=== PATIENT | female | born 1955 | race Caucasian/White ===

== ENCOUNTER 2020-03-08 13:13 | Outpatient (CLI) | payer OTHER, SELFPAY ==
--- NOTE | 2020-03-08 13:21 | MM_ITS ---
WS: [id number] BILATERAL SCREENING DIGITAL MAMMOGRAM WITH CAD HISTORY: SCREENING COMPARISON: 02/06/2019 and 01/31/2018 Bilateral CC and MLO views submitted. Computer aided detection analyzed. Breast composition: The breasts are heterogeneously dense, which may obscure small masses. No suspici ous masses, microcalcifications or architectural distortion. Dense asymmetric soft tissue in the uppe r outer quadrants of each breast. Benign calcifications. MM/[id number] IMPRESSION: BI-RADS: 2-Benign FOLLOW UP: 1 Year Follow-up
== END 2020-03-08 13:14 | disposition home or self-care (01) ==
LOC: RADSHAW 13:16
PROVIDERS: Visit Provider Nurse Practitioner Family
DX: Z12.31 Encounter for screening mammogram for malignant neoplasm of breast (principal)
CPT/HCPCS: 77067

== ENCOUNTER 2021-05-18 09:47 | Outpatient (CLI) | payer MEDICAID, SELFPAY ==
--- NOTE | 2021-05-18 09:58 | MM_ITS ---
WS: [id number] Exam: [id number] Date/Time of Exam: 05/18/2021 10:05 AM Reason For Exam: SCREENING VIEWS: MLO and CC views both breasts. Comparison made with prior exam of 01/31/2018, 02/06/2019 and 03/08/2020. Findings: There was no sign of mass, architectural distortion or suspicious calcification in either breast. He terogeneously dense MM/[id number] Impression: BI-RADS: 2-Benign FOLLOW-UP: 1 Year Follow-up This mammogram was also analyzed by the Computer Aided Detection System R2 Imag e Curtain Stretcher.
== END 2021-05-18 09:48 | disposition home or self-care (01) ==
PROVIDERS: Visit Provider Nurse Practitioner Family
DX: Z12.31 Encounter for screening mammogram for malignant neoplasm of breast (principal)
CPT/HCPCS: 77067

== ENCOUNTER 2022-06-15 10:33 | Outpatient (CLI) | payer MEDICARE, MEDICAID, SELFPAY ==
--- NOTE | 2022-06-15 10:44 | MM_ITS ---
WS: [id number] BILATERAL SCREENING DIGITAL TOMOSYNTHESIS MAMMOGRAM WITH CAD HISTORY: SCREENING COMPARISON: 05/18/2021, 03/08/2020 Bilateral CC and MLO views with tomosynthesis and synthetic mammography submitted. Computer aided det ection analyzed. Breast composition: There are scattered areas of fibroglandular density. No suspicious masses, microc alcifications or architectural distortion. Benign calcifications in each breast. MM/[id number] IMPRESSION: BI-RADS: 2-Benign FOLLOW UP: 1 Year Follow-up
== END 2022-06-15 10:34 | disposition home or self-care (01) ==
LOC: RAD 10:39
PROVIDERS: Visit Provider Family Medicine
DX: Z12.31 Encounter for screening mammogram for malignant neoplasm of breast (principal)
CPT/HCPCS: 77063; 77067

== ENCOUNTER 2023-04-30 15:17 | Inpatient (IN) | payer MEDICARE, SELFPAY ==
[2023-04-30] VITALS (13 sets, daily range): BP systolic 109–148; BP diastolic 62–78; PULSE 78–99; RESP 14–18; TEMP 36.6–38.6; O2SAT 90–96; BMI 31.8
--- NOTE | 2023-04-30 15:18 | W.ED.ABDPA2 ---
HPI - Abdominal Pain General: Chief Complaint: Abdominal Pain Stated Complaint: dr chandra, right side abd pain Time Seen by Provider: 04/30/23 15:18 History of Present Illness: 68-year-old female presents to the emergency department as requested by her primary care provider from [facility]. Patient states that her medical provider called and spoke with Dr. Fitzgerald the general surgeon to inquire about a ruptured appendicitis. Patient states she was called at home and told to come to the emergency department immediately as her CT scan findings showed a ruptured appendicitis and that she needed to be evaluated by the surgeon for additional evaluation treatment and care. Patient states that she had a high fever of 102.6 ?F and complained of right lower abdominal pain she states her current abdominal pain is a 5 out of 10. She does have associated nausea she is slightly febrile now on arrival at 101.5. She states that her last by mouth intake with any food was at noon yesterday. Associated Symptoms: Reports fever(s) and nausea Review of Systems General: Reports: 10 or more systems reviewed and unremarkable except in HPI and below Const: Reports: fever(s) GI: Reports: abdominal pain and nausea Physical Exam Narrative: EXAM NARRATIVE: Constitutional: the patient appears well nourished and of normal development. Vital signs as documented. No acute distress at present. Alert and oriented-to person, place, time and situation. Head, eyes, ears, nose, mouth, throat: Normocephalic, atraumatic. Pupils-equal, round, reactive to light. No scleral icterus. Normal-appearing external ears. Normal appearing nasal turbinates, no drainage. No obvious oral lesions, posterior oropharynx without erythema or exudates. Neck: Supple, trachea is midline, no lymphadenopathy, no jugular venous distension, thyromegaly, or carotid bruits. Carotid upstrokes are brisk bilaterally. Lungs: clear to auscultation to all lung miranda. Symmetrical rise and fall of chest, no obvious signs of increased work of breathing at present. Cardiac: Regular rate and rhythm, positive S1, S2. No murmurs, rubs or gallops that I can appreciate Abdomen: Soft, moderately tender to the right lower quadrant, normal active bowel sounds to all quadrants. No palpable masses, no organomegaly and abdominal bruits. Extremities: 2+ pulses in the upper extremities that are equal bilaterally, 2+ pulses in the lower extremities that are equal bilaterally. Non-edematous. Moves all extremities well, sensation to all extremities are noted. Skin: Warm, dry, intact. Course Vital Signs: Vital signs: Vital Signs Temperature 101.5 F H 04/30/23 15:22 Pulse Rate 98 04/30/23 15:22 Respiratory Rate 16 04/30/23 15:56 Blood Pressure 140/70 04/30/23 15:56 Pulse Oximetry 95 04/30/23 15:56 Oxygen Delivery Me thod Room Air 04/30/23 15:22 MDM - Abdominal Pain Medical Decision Making Physical exam completed and documented I did review the CT report from the outpatient facility and contact Dr. Fitzgerald the general surgeon. I will obtain a CBC, CMP, procalcitonin and lactic acid and blood cultures. Medical Records I reviewed the patient's medical records. Lab Data I reviewed the patient's lab results. 04/30/23 15:31 04/30/23 15:31 Labs/Radiology: Laboratory Results WBC 19.17 10^3/uL (3.29-11.43) H 04/30/23 15:31 RBC 3.90 10^6/uL (3.85-5.65) 04/30/23 15:31 Hgb 11.10 g/dL (11.27-16.99) L 04/30/23 15:31 Hct 32.7 % (36-47) L 04/30/23 15:31 MCV 83.8 fl (85-98) L 04/30/23 15:31 MCH 28.5 pg (27-33) 04/30/23 15:31 MCHC 33.9 g/dL (30-55) 04/30/23 15:31 RDW 15.0 % (12.1-15.1) 04/30/23 15:31 Plt Count 261 10^3/cmm (157-399) 04/30/23 15:31 MPV 10.6 fL (7.4-10.4) H 04/30/23 15:31 Neut % (Auto) 83.9 % 04/30/23 15:31 Lymph % (Auto) 10.1 % 04/30/23 15:31 [place] % (Auto) 4.1 % 04/30/23 15:31 Eos % (Auto) 0.0 % 04/30/23 15:31 Baso % (Auto) 0.3 % 04/30/23 15:31 Neut # (Auto) 16.09 10^3/uL (1.8-7.7) H 04/30/23 15:31 Lymph # (Auto) 1.9 10^3/uL (0.8-4.8) 04/30/23 15:31 [place] # (Auto) 0.8 10^3/uL (0.2-0.9) 04/30/23 15:31 Eos # (Auto) 0.0 10^3/uL (0.0-0.8) 04/30/23 15:31 Baso # (Auto) 0.1 10^3/uL (0.0-0.1) 04/30/23 15:31 Nucleated RBC % (auto) 0 % 04/30/23 15:31 Nucleated RBCs # 0.0 /100WBC 04/30/23 15:31 PT 14.80 SECONDS (12.1-14.9) 04/30/23 15:31 INR 1.12 (0.8-1.2) 04/30/23 15:31 APTT 31.9 SECONDS (23.9-36.7) 04/30/23 15:31 Sodium 132 mmol/L (136-145) L 04/30/23 15:31 Potassium 3.6 mmol/L (3.5-5.1) 04/30/23 15:31 Chloride 96 mmol/L (98-107) L 04/30/23 15:31 Carbon Dioxide 21 mmol/L (22-29) L 04/30/23 15:31 Anion Gap 18.6 (5-19) 04/30/23 15:31 BUN 11 mg/dL (8-23) 04/30/23 15:31 Creatinine 1.0 mg/dL (0.5-0.9) H 04/30/23 15:31 GFR Calculation 55.5 mL/min (90-130) L 04/30/23 15:31 Glucose 170 mg/dL (65-115) H 04/30/23 15:31 Calculated Osmolality 277 mOsm/kg (285-295) L 04/30/23 15:31 Lactic Acid 1.3 mmol/L (0.5-2.2) 04/30/23 15:31 Calcium 10.3 mg/dL (8.5-10.5) 04/30/23 15:31 Total Bilirubin 0.6 mg/dL (0.15-1.2) 04/30/23 15:31 AST 24 U/L (0-32) 04/30/23 15:31 ALT 26 U/L (0-33) 04/30/23 15:31 Alkaline Phosphatase 57 U/L (35-105) 04/30/23 15:31 Total Protein 7.5 g/dL (6.6-8.7) 04/30/23 15:31 Albumin 4.1 g/dL (3.5-5.2) 04/30/23 15:31 Globulin 3.4 g/dL (1.3-4.6) 04/30/23 15:31 Procalcitonin 2.73 ng/mL (0-0.5) H 04/30/23 15:31 Amorphous Sediment Not Reportable 04/30/23 16:32 All radiology interpretation(s) finalized by discharge Discharge Plan Discharge Patient Disposition: Admitted As Inpatient Clinical Impression: Acute appendicitis with appendiceal abscess Abdominal pain Qualifiers: Abdominal location: right lower quadrant Qualified Code(s): R10.31 - Right lower quadrant pain Condition: Stable Coding Level of Care Code 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
[2023-04-30 15:36] LABS: Basophils # 0.1 10^3/uL (0.0-0.1); Basophils % 0.3 %; Hematocrit 32.7 % (36-47); Lymphocytes # 1.9 10^3/uL (0.8-4.8); Lymphocytes % 10.1 %; Mean Corpuscular HGB Conc 33.9 g/dL (30-55); Mean Corpuscular Hemoglobin 28.5 pg (27-33); Mean Corpuscular Volume 83.8 fl (85-98); Mean Platelet Volume 10.6 fL (7.4-10.4); Monocytes # 0.8 10^3/uL (0.2-0.9); Monocytes % 4.1 %; Neutrophils # 16.09 10^3/uL (1.8-7.7); Neutrophils % 83.9 %; Nucleated Red Blood Cells % 0 %; Platelet Count 261 10^3/cmm (157-399); White Blood Count 19.17 10^3/uL (3.29-11.43)
[2023-04-30 15:50] LABS: INR 1.12 (0.8-1.2)
[2023-04-30 15:51] LABS: Partial Thromboplastin Time 31.9 SECONDS (23.9-36.7)
[2023-04-30 15:56] LABS: Alanine Aminotransferase 26 U/L (0-33); Albumin Level 4.1 g/dL (3.5-5.2); Alkaline Phosphatase 57 U/L (35-105); Anion Gap 18.6 (5-19); Aspartate Amino Transferase 24 U/L (0-32); Blood Urea Nitrogen 11 mg/dL (8-23); Calcium 10.3 mg/dL (8.5-10.5); Carbon Dioxide 21 mmol/L (22-29); Chloride 96 mmol/L (98-107); Globulin 3.4 g/dL (1.3-4.6); Glomerular Filtration Rate 55.5 mL/min (90-130); Glucose 170 mg/dL (65-115); Osmolality Calculated 277 mOsm/kg (285-295); Potassium 3.6 mmol/L (3.5-5.1); Sodium 132 mmol/L (136-145); Total Bilirubin 0.6 mg/dL (0.15-1.2); Total Protein 7.5 g/dL (6.6-8.7)
[2023-04-30 15:57] LABS: Lactic Sepsis W/Reflex 1.3 mmol/L (0.5-2.2)
[2023-04-30 16:03] LABS: Procalcitonin 2.73 ng/mL (0-0.5)
--- NOTE | 2023-04-30 16:04 | PC.PHAR ---
pts daughter verified pts medications-state the pts ozempic is on hold for 2 weeks as of 04/29/23 and metformin is on hold till 05/02/23 due to contrast dye-ext shows kcl 10meq daily filled 12/28/22 90d/s pts family states the pt does not take-states the pt uses lantus 36 units in the am and 30 units at bedtime ext shows last filled 04/13/23 50 units bid-notes are made in the pharmacy comments
[2023-04-30 16:57] LABS: Protein Urine 1+ (Negative); Urine Appearance Clear (CLEAR); Urine Color Yellow (Yellow); pH Urine 7 (5-7)
--- NOTE | 2023-04-30 17:01 | P.HP_ITS ---
Providers/Chief Complaint 2 Chief Complaint: dr chandra, right side abd pain History of Present Illness Marcela Mayes is a 68 year old female who presents to the hospital with 5-day history of abdominal pain. She reports that her pain began periumbilically but is now suprapubic across the right lower quadrant and left lower quadrants of her abdomen. The pain is sharp and constant and radiates to her back. Patient movement makes pain worse. Nothing seems to make the pain better. She denies any nausea or vomiting. Denies any diarrhea, constipation, hematochezia and/or melena. She is never had surgery on her abdomen, reportedly. A CT of the abdomen pelvis done at an outside facility shows acute appendicitis with perforation and contained extraluminal air. Review of Systems 2 General: Reports: 10 or more systems reviewed and unremarkable except in HPI and below Medications/Allergies Home Medications Medication Instructions Recorded Confirmed Last Taken Type amlodipine 10 mg tablet 10 mg PO QAM 04/30/23 04/30/23 Unknown History apple cider vinegar 500 mg tablet 500 mg PO BEDTIME 04/30/23 04/30/23 1 Week Ago History ~04/23/23 STOP TAKING A WEEK ascorbic acid (vitamin C) 500 mg 500 mg PO QAM 04/30/23 04/30/23 Unknown History tablet (Vitamin C) aspirin 325 mg tablet 325 mg PO BEDTIME 04/30/23 04/30/23 Unknown History calcium carbonate 600 mg-vitamin 1 tab PO QAM 04/30/23 04/30/23 Unknown History D3 10 mcg (400 unit) tablet (Calcium 600 + D(3)) carvedilol 6.25 mg tablet 6.25 mg PO BID 04/30/23 04/30/23 Unknown History cetirizine 10 mg tablet (Zyrtec) 10 mg PO DAILY 04/30/23 04/30/23 Unknown History citalopram 20 mg tablet 20 mg PO QAM 04/30/23 04/30/23 Unknown History fenofibrate nanocrystallized 48 mg 96 mg PO BEDTIME 04/30/23 04/30/23 Unknown History tablet ferrous sulfate 325 mg (65 mg 325 mg PO QAM 04/30/23 04/30/23 Unknown History iron) tablet (iron) furosemide 20 mg tablet 20 mg PO QAM 04/30/23 04/30/23 Unknown History glipizide 10 mg tablet 10 mg PO BID 04/30/23 04/30/23 Unknown History hydroxyzine HCl 25 mg tablet 25 mg PO BEDTIME 04/30/23 04/30/23 Unknown History ibuprofen 600 mg tablet 600 mg PO TID PRN Pain 04/30/23 04/30/23 Unknown History insulin glargine 100 unit/mL (3 See Rx Instructions .Route .COMPLEX 04/30/23 04/30/23 Unknown History mL) subcutaneous pen (Lantus Solostar U-100 Insulin) lovastatin 40 mg tablet 40 mg PO BEDTIME 04/30/23 04/30/23 Unknown History meloxicam 7.5 mg tablet 7.5 mg PO QAM 04/30/23 04/30/23 Unknown History metformin 1,000 mg tablet 1,000 mg PO BID 04/30/23 04/30/23 Unknown History semaglutide 1 mg/dose (4 mg/3 mL) 1 mg SUBCUT Q7D 04/30/23 04/30/23 Unknown History subcutaneous pen injector (Ozempic) tizanidine 2 mg tablet 2 mg PO Q6H PRN Muscle Spasm 04/30/23 04/30/23 Unknown History vitamin B complex 1 tab PO QAM 04/30/23 04/30/23 Unknown History Allergies Allergy/AdvReac Type Severity Reaction Status Date / Time clonazepam [From Klonopin] Allergy ALGY-Anaphy Verified 04/30/23 15:21 laxis lisinopril Allergy Unknown Verified 04/30/23 15:55 Vitals/I&O/Wt Last Vital Signs Temp 101.5 F H 04/30/23 15:22 Pulse 98 04/30/23 15:22 Resp 16 04/30/23 15:22 BP 148/76 04/30/23 15:22 Pulse Ox 96 04/30/23 15:22 O2 Del Method Room Air 04/30/23 15:22 Weight last 48 hrs Weight 180 lb Physical Exam 2 Narrative: General : Patient is well developed , no acute distress, oriented x3 Head : Normal cephalic, a-traumatic. Ears : Pinnae and external canal are normal. Hearing is normal. Eyes : PERRLA, Sclera and injection are normal. No conjunctival discharge. Nose : Mucous membranes are without erythema. Throat : buccal mucosa is normal, gums are without significant recession or hypertrophy. Lungs : Equal chest rise bilaterally, no use of accessory muscles, trachea is midline. Cor : Rate and rhythm are normal. Abdomen : Soft, distended, diffusely tender to palpation mostly in the right lower quadrant, positive Rovsing's Extremities : No edema, no cyanosis or clubbing, dorsalis pedis pulses are present bilaterally, non-tender to palpation of calves. Upper extremities are normal bilaterally. Back : non-tender to palpation, no CVA tenderness. Neuro : CN II - XII intact, Upper and lower extremities have equal and full strength Data 04/30/23 15:31 04/30/23 15:31 A&P Assessment and plan (1) Acute perforated appendicitis: Plan Laparoscopic Appendectomy The risks and benefits of the procedure, including but not limited to, bleeding, infection, scar, numbness, pain, damage to surrounding structures, conversion to an open procedure, were explained to the patient. He is understanding of the risks and wishes to proceed. Attestations 2 Medical Necessity Statement*: Required 2-5 nights in the hospital for IV antibiotics and recovery after appendectomy for acute perforated appendicitis Coding Level of Care Code 74848 Diagnoses Acute perforated appendicitis K35.32
[2023-04-30 17:05] LABS: Bilirubin Urine Neg (Negative); Blood Urine 3+ (Negative); Glucose Urine UA Norm (Normal); Ketones Urine 1+ (Negative); Leukocyte Esterase Urine 1+ (Negative); Nitrate Urine Negative (Negative); Urobilinogen Urine Norm (Negative)
--- NOTE | 2023-04-30 17:08 | P.ANESASSM_ITS ---
Pre-Anesthetic Assessment Height/Weight: Height 1.6 m Weight 81.647 kg Temp Pulse Resp BP Pulse Ox O2 Del Method 100.6 F H 98 16 129/66 94 Room Air 04/30/23 17:05 04/30/23 17:05 04/30/23 17:05 04/30/23 17:05 04/30/23 17:05 04/30/23 17:05 Preop Diagnosis: ruptured appendicitis Operation Date: 04/30/23 17:05 Proposed Procedures p Laparoscopic Appendectomy(Not Applicable) - Haris Fitzgerald DO Familial anesthetic complications: none Was Beta Clarence taken within 24 hours: N/A Was Clonidine taken within 24 hours: N/A Social No alcohol and No tobacco Exam alert, oriented x 3, clear to auscultation bilaterally and regular rate & rhythm Airway Submandibular: within normal limits Cervical ROM: within normal limits Mallampati: Class I Dentition: false Pulmonary None reported CV/HEM Hypertension None reported Hepatic None reported GI Gastroesophageal Reflux Disease (OTC) Metabolic Diabetes Mellitus and Hyperlipidemia [facility] None reported Neuropsych Anxiety 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 term memory loss Anesthetic Plan ASA status: 3 Anesthesia: General Risk of > 500 ml blood loss (7ml/kg in children): No Medications/Allergies Home Medications Medication Instructions Recorded Confirmed Last Taken Type amlodipine 10 mg tablet 10 mg PO QAM 04/30/23 04/30/23 Unknown History apple cider vinegar 500 mg tablet 500 mg PO BEDTIME 04/30/23 04/30/23 1 Week Ago History ~04/23/23 STOP TAKING A WEEK ascorbic acid (vitamin C) 500 mg 500 mg PO QAM 04/30/23 04/30/23 Unknown History tablet (Vitamin C) aspirin 325 mg tablet 325 mg PO BEDTIME 04/30/23 04/30/23 Unknown History calcium carbonate 600 mg-vitamin 1 tab PO QAM 04/30/23 04/30/23 Unknown History D3 10 mcg (400 unit) tablet (Calcium 600 + D(3)) carvedilol 6.25 mg tablet 6.25 mg PO BID 04/30/23 04/30/23 Unknown History cetirizine 10 mg tablet (Zyrtec) 10 mg PO DAILY 04/30/23 04/30/23 Unknown History citalopram 20 mg tablet 20 mg PO QAM 04/30/23 04/30/23 Unknown History fenofibrate nanocrystallized 48 mg 96 mg PO BEDTIME 04/30/23 04/30/23 Unknown History tablet ferrous sulfate 325 mg (65 mg 325 mg PO QAM 04/30/23 04/30/23 Unknown History iron) tablet (iron) furosemide 20 mg tablet 20 mg PO QAM 04/30/23 04/30/23 Unknown History glipizide 10 mg tablet 10 mg PO BID 04/30/23 04/30/23 Unknown History hydroxyzine HCl 25 mg tablet 25 mg PO BEDTIME 04/30/23 04/30/23 Unknown History ibuprofen 600 mg tablet 600 mg PO TID PRN Pain 04/30/23 04/30/23 Unknown History insulin glargine 100 unit/mL (3 See Rx Instructions .Route .COMPLEX 04/30/23 04/30/23 Unknown History mL) subcutaneous pen (Lantus Solostar U-100 Insulin) lovastatin 40 mg tablet 40 mg PO BEDTIME 04/30/23 04/30/23 Unknown History meloxicam 7.5 mg tablet 7.5 mg PO QAM 04/30/23 04/30/23 Unknown History metformin 1,000 mg tablet 1,000 mg PO BID 04/30/23 04/30/23 Unknown History semaglutide 1 mg/dose (4 mg/3 mL) 1 mg SUBCUT Q7D 04/30/23 04/30/23 Unknown History subcutaneous pen injector (Ozempic) tizanidine 2 mg tablet 2 mg PO Q6H PRN Muscle Spasm 04/30/23 04/30/23 Unknown History vitamin B complex 1 tab PO QAM 04/30/23 04/30/23 Unknown History Allergies Allergy/AdvReac Type Severity Reaction Status Date / Time clonazepam [From Klonopin] Allergy ALGY-Anaphy Verified 04/30/23 15:21 laxis lisinopril Allergy Unknown Verified 04/30/23 15:55 Data Anesthesia 04/30/23 15:31 04/30/23 15:31 Short CBC 04/30/23 Range/Units 15:31 WBC 19.17 H (3.29-11.43) 10^3/uL Hgb 11.10 L (11.27-16.99) g/dL Hct 32.7 L (36-47) % MCV 83.8 L (85-98) fl Plt Count 261 (157-399) 10^3/cmm Neut % (Auto) 83.9 % Neut # (Auto) 16.09 H (1.8-7.7) 10^3/uL BMP 04/30/23 15:31 Sodium 132 L Potassium 3.6 Chloride 96 L Carbon Dioxide 21 L BUN 11 Creatinine 1.0 H Glucose 170 H Calcium 10.3 Liver Function 04/30/23 Range/Units 15:31 Total Bilirubin 0.6 (0.15-1.2) mg/dL AST 24 (0-32) U/L ALT 26 (0-33) U/L Alkaline Phosphatase 57 (35-105) U/L Albumin 4.1 (3.5-5.2) g/dL Coags 04/30/23 15:31 PT 14.80 INR 1.12 APTT 31.9 Cardiac Studies: 2 No Data to Display
[2023-04-30 17:09] LABS: Add Urine Culture? Yes; Squamous Epithelial Cell Urine 0-4 /hpf (0-5)
[2023-04-30] MEDS: heparin 5,000 unit/mL INJ 1 mL 5000 UNIT SUBCUT (17:10)
[2023-04-30] MEDS: pantoprazole 40 mg SDV IVP (17:13)
[2023-04-30] MEDS: piperacillin-tazobactam 3.375 GM in sodium chloride 0.9% (plus) 50 ML IV (17:26)
--- NOTE | 2023-04-30 17:58 | P.CONIM_ITS ---
Providers/Reason For Consult 2 Consulting Physician/Specialty*: Hospitalist Reason for Consult*: Postoperative management Attending Physician: Haris Fitzgerald DO History of Present Illness History of Present Illness Marcela Mayes is a 68 year old female who waited 5 days with her symptoms of abdominal pain nausea, vomiting,Diaphoresis before coming to the hospital. She was transferred from outside facility for appendicitis with perforation. Hospitalist team has been consulted for postoperative management she does have history of diabetes and hypertension. Lives with her daughter. Review of Systems 2 Const: Denies: fever(s) Eyes: Denies: change in vision ENMT: Denies: throat pain Card: Denies: chest pain Resp: Denies: dyspnea GI: Reports: abdominal pain and nausea : Denies: flank pain Medications/Allergies Home Medications Medication Instructions Recorded Confirmed Last Taken Type amlodipine 10 mg tablet 10 mg PO QAM 04/30/23 04/30/23 Unknown History apple cider vinegar 500 mg tablet 500 mg PO BEDTIME 04/30/23 04/30/23 1 Week Ago History ~04/23/23 STOP TAKING A WEEK ascorbic acid (vitamin C) 500 mg 500 mg PO QAM 04/30/23 04/30/23 Unknown History tablet (Vitamin C) aspirin 325 mg tablet 325 mg PO BEDTIME 04/30/23 04/30/23 Unknown History calcium carbonate 600 mg-vitamin 1 tab PO QAM 04/30/23 04/30/23 Unknown History D3 10 mcg (400 unit) tablet (Calcium 600 + D(3)) carvedilol 6.25 mg tablet 6.25 mg PO BID 04/30/23 04/30/23 Unknown History cetirizine 10 mg tablet (Zyrtec) 10 mg PO DAILY 04/30/23 04/30/23 Unknown History citalopram 20 mg tablet 20 mg PO QAM 04/30/23 04/30/23 Unknown History fenofibrate nanocrystallized 48 mg 96 mg PO BEDTIME 04/30/23 04/30/23 Unknown History tablet ferrous sulfate 325 mg (65 mg 325 mg PO QAM 04/30/23 04/30/23 Unknown History iron) tablet (iron) furosemide 20 mg tablet 20 mg PO QAM 04/30/23 04/30/23 Unknown History glipizide 10 mg tablet 10 mg PO BID 04/30/23 04/30/23 Unknown History hydroxyzine HCl 25 mg tablet 25 mg PO BEDTIME 04/30/23 04/30/23 Unknown History ibuprofen 600 mg tablet 600 mg PO TID PRN Pain 04/30/23 04/30/23 Unknown History insulin glargine 100 unit/mL (3 See Rx Instructions .Route .COMPLEX 04/30/23 04/30/23 Unknown History mL) subcutaneous pen (Lantus Solostar U-100 Insulin) lovastatin 40 mg tablet 40 mg PO BEDTIME 04/30/23 04/30/23 Unknown History meloxicam 7.5 mg tablet 7.5 mg PO QAM 04/30/23 04/30/23 Unknown History metformin 1,000 mg tablet 1,000 mg PO BID 04/30/23 04/30/23 Unknown History semaglutide 1 mg/dose (4 mg/3 mL) 1 mg SUBCUT Q7D 04/30/23 04/30/23 Unknown History subcutaneous pen injector (Ozempic) tizanidine 2 mg tablet 2 mg PO Q6H PRN Muscle Spasm 04/30/23 04/30/23 Unknown History vitamin B complex 1 tab PO QAM 04/30/23 04/30/23 Unknown History Allergies Allergy/AdvReac Type Severity Reaction Status Date / Time clonazepam [From Klonopin] Allergy ALGY-Anaphy Verified 04/30/23 15:21 laxis lisinopril Allergy Unknown Verified 04/30/23 15:55 Current Medications Generic Name Dose Route Start Last Admin Trade Name Freq PRN Reason Stop Dose Admin Heparin Sodium (Porcine) 5,000 unit 04/30/23 17:00 04/30/23 17:10 Heparin 5,000 Unit/Ml Inj 1 Ml SUBCUT 5,000 unit Q12H SONJA Administration Piperacillin Sod/Tazobactam 50 mls @ 100 mls/hr 04/30/23 17:00 04/30/23 17:39 Sod 3.375 gm/ Sodium Chloride IV Infused Q8H SONJA Infusion Protocol Pantoprazole Sodium 40 mg 04/30/23 17:00 04/30/23 17:13 Pantoprazole 40 Mg Sdv IVP 40 mg Q24H SONJA Administration PFSH Acute 2 PFSH: Medical History (Updated 05/01/23 @ 10:11 by Xavier Noyola MD) Hypertension Diabetes Vitals/I&O/Wt Last Vital Signs Temp 100.6 F H 04/30/23 17:05 Pulse 98 04/30/23 17:05 Resp 16 04/30/23 17:05 BP 129/66 04/30/23 17:05 Pulse Ox 94 04/30/23 17:05 O2 Del Method Room Air 04/30/23 17:05 04/30/23 04/30/23 04/30/23 06:59 14:59 22:59 Intake Total 50 / 50 Balance 50 / 50 Weight last 48 hrs Weight 81.647 kg Physical Exam 2 Narrative: Awake and alert Postop currently on room air Pleasant cooperative No severe abdominal pain Nonfocal neuroexam Data 05/01/23 04:20 05/01/23 04:20 A&P Assessment and plan (1) Acute appendicitis with appendiceal abscess: (2) Acute perforated appendicitis: (3) Abdominal pain: Qualifiers: Abdominal location: right lower quadrant Qualified Code(s): R10.31 - Right lower quadrant pain (4) S/P laparoscopic appendectomy: (5) Sepsis: Plan Postoperative management of acute perforated appendicitis Laparoscopic appendectomy Postop day 0 Hospitalist team will manage her hypertension, will follow along General surgery Postoperatively monitor for any signs of A-fib Continue amlodipine, Coreg, for her diabetes we will use insulin sliding scale and use Lantus lower unit, hold metformin Patient lives with her daughter Most likely will stay until this weekend Sepsis criteria met with leukocytosis,, fever, she has received septic bolus Blood cultures requested on admission, lactic acid noted Consult Attestations 2 Medical Necessity Statement: As per general surgery Diagnoses Acute appendicitis with appendiceal abscess K35.33 Acute perforated appendicitis K35.32 Abdominal pain R10.31 Abdominal location: right lower quadrant S/P laparoscopic appendectomy Z90.49 Sepsis A41.9
[2023-04-30] MEDS: lidocaine-epi 2% PF 1:200,000 20 mL SDV 3 ML XX (18:15)
--- NOTE | 2023-04-30 18:45 | PM.OP ---
Operative Report Date of procedure: April 30, 2023 Pre-op diagnosis: Acute perforated appendicitis Post-op diagnosis: Acute perforated appendicitis with feculent peritonitis Procedure done: Laparoscopic appendectomy Implants: 19 Citizen Of [place] Douglas drains x 2 Specimens removed/disposition: Appendix and extraluminal stool Surgeon: Haris Fitzgerald DO Anesthesia: General Estimated blood loss (mL): 5 Complications: None apparent Findings: There was a significant amount of extraluminal stool with perforation at the base of the appendix Brief History: This very pleasant 68-year-old female presented to the hospital with 5-day history of abdominal pain. She had CT evidence of perforated appendicitis. Laparoscopic appendectomy was indicated. The risk and benefits were explained and documented. Procedure: Patient was wheeled into the operative room and placed on the OR table in a supine position. Abdomen was inspected prepped and draped in usual sterile fashion. Time-out was performed and all present were in agreement. A 15 blade scalp was used to make a stab incision in the left upper quadrant and intra-abdominal insufflation was achieved using a Veress needle. After localizing the tissue incisions were made and a 12 millimeter trocar was placed into the umbilicus as well as a 5mm in the right lower quadrant and a 5 mm in the left lower quadrant . The appendix was identified was ruptured at the base with a significant amount of stool surrounding the base of the appendix as well as in the right upper quadrant and pelvis.. I used the Voyant to ligate the mesoappendix at the base. I then used 2 PDS endo-loops to snare the base of the appendix. There was very little tissue to last so due to the location of the perforation. I then used the Voyant to ligate the appendix distally. The appendix was removed from the abdomen using an Endo-Catch bag through the umbilical incision. The abdomen was explored and all large pieces of stool were also placed in the Endo Catch bag. I examined the abdomen and areas of contamination were spot irrigated and suctioned. No further pathology was identified. Hemostasis was noted. 219 Citizen [place] Douglas drains were placed into the abdomen. The midline drain goes off from the inferior right paracolic gutter down into the pelvis. The left lower quadrant drain goes along the right colic gutter wrapping around the cecum and ends over the previous site of perforation. Drains were sewn in place using 2-0 silk. I then closed the umbilical site with a Herson-Sam and 0 Vicryl suture in a figure of 8 fashion. All ports removed. Skin was washed and dried. 3-0 nylon in an interrupted fashion. Sterile bandages were applied.. Patient tolerated the procedure well.
--- NOTE | 2023-04-30 19:14 | PC.PHAR ---
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 = 9.2 mcg/ml t1/2 16 hrs Hrs until 20 mcg/ml 6.7 hrs Hrs until 15 mcg/ml 13.5 hours Hrs until 10 mcg/ml 23.0 hours Dose Tau (Freq) Levels expected Standard 1250 24 Cmax 39.0 Targets 19.50 24.5 Cpeak 37.4 25 to 40 mg/kg hours Cmin 15.4 10 to 20
--- NOTE | 2023-04-30 19:32 | P.PCN_ITS ---
PACU note Narrative: VSS, Good respiratory effort, report to BIG DATA PLATFORM ARCHITECT Exam: awake
--- NOTE | 2023-04-30 19:32 | PM.PACU ---
PACU note Narrative: VSS, Good respiratory effort, report to GIFT SHOP CLERK Exam: awake
--- NOTE | 2023-04-30 19:45 | ANE.PACU2 ---
Inpatient post-anesthesia follow up: Airway intact: Yes Vital signs: Temperature 98.5 F Pulse Rate 81 Respiratory Rate 18 Blood Pressure 119/68 Pulse Oximetry 94 Oxygen Delivery Me thod Nasal Cannula Oxygen Flow Rate 2 Fraction of Inspir ed Oxygen Hydration adequate: Yes Nausea and vomiting: No Pain level: 1 Mental status: Baseline
[2023-04-30] MEDS: vancomycin 1,250 MG/250 ML PIGGYBACK 250 MG IV (20:56)
[2023-04-30] MEDS: sodium chloride 0.9% 1,000 ML 100 ML IV (20:57)
[2023-04-30 22:38] LABS: Glucose Point of Care 212 mg/dL (70-110)
[2023-04-30] MEDS: HYDROcodone-acetaminophen 5-325 mg Tablet 1 TAB PO (23:13)
[2023-05-01] VITALS (11 sets, daily range): BP systolic 119–141; BP diastolic 66–76; PULSE 59–85; RESP 14–18; TEMP 36.3–38.2; O2SAT 90–96
[2023-05-01] MEDS: piperacillin-tazobactam 3.375 GM in sodium chloride 0.9% (plus) 50 ML IV ×3 (00:03→16:36)
[2023-05-01] MEDS: HYDROcodone-acetaminophen 5-325 mg Tablet 1 TAB PO (03:33)
[2023-05-01 05:04] LABS: Basophils % 0.2 %; Hematocrit 29.4 % (36-47); Lymphocytes # 0.9 10^3/uL (0.8-4.8); Lymphocytes % 5.5 %; Mean Corpuscular HGB Conc 33.3 g/dL (30-55); Mean Corpuscular Hemoglobin 28.1 pg (27-33); Mean Corpuscular Volume 84.2 fl (85-98); Monocytes # 0.6 10^3/uL (0.2-0.9); Monocytes % 4.1 %; Neutrophils # 13.99 10^3/uL (1.8-7.7); Neutrophils % 88.9 %; Nucleated Red Blood Cells % 0 %; Platelet Count 232 10^3/cmm (157-399); Red Blood Count 3.49 10^6/uL (3.85-5.65); Red Cell Distribution Width 15.2 % (12.1-15.1); White Blood Count 15.73 10^3/uL (3.29-11.43)
[2023-05-01 05:19] LABS: Lactate (Lactic Acid level) 1.2 mmol/L (0.5-2.2)
[2023-05-01 05:23] LABS: Anion Gap 16.7 (5-19); Blood Urea Nitrogen 13 mg/dL (8-23); Calcium 9.2 mg/dL (8.5-10.5); Carbon Dioxide 20 mmol/L (22-29); Chloride 99 mmol/L (98-107); Glomerular Filtration Rate 55.5 mL/min (90-130); Glucose 224 mg/dL (65-115); Magnesium 1.7 mg/dL (1.7-2.3); Osmolality Calculated 281 mOsm/kg (285-295); Potassium 3.7 mmol/L (3.5-5.1); Sodium 132 mmol/L (136-145)
[2023-05-01 05:27] LABS: C Reactive Protein 311.9 mg/L (0.0-4.9)
[2023-05-01] MEDS: heparin 5,000 unit/mL INJ 1 mL 5000 UNIT SUBCUT ×2 (05:27→16:36)
[2023-05-01 06:34] LABS: Glucose Point of Care 210 mg/dL (70-110)
[2023-05-01] MEDS: sodium chloride 0.9% 1,000 ML 100 ML IV ×2 (08:09→22:13)
[2023-05-01] MEDS: insulin lispro 100 unit/1 mL SUBCUT ×2 (08:10→17:49)
[2023-05-01] MEDS: HYDROmorphone 1 mg/mL INJ 1 mL IVP ×2 (08:24→10:56)
--- NOTE | 2023-05-01 10:14 | P.PN_ITS ---
Subjective 2 Subjective: White count improving No fever today Patient tolerating diet No BM yet Passage of flatus present Vitals/I&O/Wt Last Vital Signs Temp 98.5 F 05/01/23 07:51 Pulse 68 05/01/23 07:51 Resp 16 05/01/23 08:24 BP 119/68 05/01/23 07:51 Pulse Ox 96 05/01/23 07:51 O2 Del Method Nasal Cannula 05/01/23 07:51 O2 Flow Rate 2 05/01/23 04:00 04/30/23 05/01/23 05/01/23 22:59 06:59 14:59 Intake Total 780 / 780 1050 / 1830 240 / 240 Output Total 660 / 660 70 / 730 Balance 120 / 120 980 / 1100 240 / 240 Weight last 48 hrs Weight 85.729 kg Weight 81.647 kg Weight 81.647 kg Physical Exam 2 Narrative: Awake and alert No abdominal pain GCS 15 Currently on room air Hemodynamically stable Pleasant cooperative No active complaint of chest pain shortness of breath abdominal pain Nonfocal neuroexam Data 05/01/23 04:20 05/01/23 04:20 A&P Assessment and plan (1) Sepsis: (2) Abdominal pain: Qualifiers: Abdominal location: right lower quadrant Qualified Code(s): R10.31 - Right lower quadrant pain (3) S/P laparoscopic appendectomy: Plan Postop day 1 Sepsis related to perforated appendicitis: Improving No fever Abdominal pain is better Tolerating diet Add senna S Continue vancomycin and Zosyn considering sepsis Cultures pending Likely will stay until this weekend Continue consistent carb diet Hyperglycemia currently on sliding scale and Lantus A1c level Attestations 2 Medical Necessity Statement*: As per general surgery Diagnoses Sepsis A41.9 Abdominal pain R10.31 Abdominal location: right lower quadrant S/P laparoscopic appendectomy Z90.49
[2023-05-01 10:47] LABS: Estmated Average Glucose 123; Hemoglobin A1C 5.9 % (4.0-6.0)
--- NOTE | 2023-05-01 11:21 | P.PN_ITS ---
Subjective 2 Subjective: Patient seen and examined. Pain controlled Vitals/I&O/Wt Last Vital Signs Temp 98.2 F 05/02/23 07:57 Pulse 79 05/02/23 07:57 Resp 16 05/02/23 07:57 BP 136/72 05/02/23 07:57 Pulse Ox 93 05/02/23 07:57 O2 Del Method Nasal Cannula 05/02/23 07:57 O2 Flow Rate 3 05/02/23 03:10 05/01/23 05/02/23 05/02/23 22:59 06:59 14:59 Intake Total 1780 / 2310 50 / 2360 1335 / 1335 Output Total 725 / 875 325 / 1200 Balance 1055 / 1435 -275 / 1160 1335 / 1335 Weight last 48 hrs Weight 192 lb 11.2 oz Weight 189 lb Weight 180 lb Weight 180 lb Physical Exam 2 Narrative: General: No acute distress, awake alert and oriented x 3 Abdomen: Soft, mildly distended, appropriately tender to palpation Drains, mostly sanguinous Data 05/02/23 03:54 05/02/23 03:54 A&P Assessment and plan (1) Acute appendicitis with generalized peritonitis, with perforation and abscess: Plan Postoperative day #1 status post laparoscopic appendectomy with drainage of intra-abdominal abscess and drain placements Due to the severity of the patient's disease, she will stay for 5 days of IV antibiotics Medicine following, appreciate their input See orders Attestations 2 Medical Necessity Statement*: Due to the severity of the patient's acute perforated appendicitis with feculent peritonitis and abscess formation, patient will require multiple more days in the hospital for IV antibiotics and medical management Coding Level of Care Code Acute Code for [facility] Diagnoses Acute appendicitis with generalized peritonitis, with perforation and abscess K35.211
[2023-05-01 11:53] LABS: Glucose Point of Care 204 mg/dL (70-110)
[2023-05-01] MEDS: ondansetron 2 mg/ML SDV 2 mL 4 MG IVP (12:25)
[2023-05-01] MEDS: pantoprazole 40 mg SDV IVP (17:03)
[2023-05-01 17:14] LABS: Glucose Point of Care 205 mg/dL (70-110)
[2023-05-01] MEDS: sennosides-docusate Tablet 2 TAB PO (17:49)
[2023-05-01] MEDS: vancomycin 1,250 MG/250 ML PIGGYBACK 250 MG IV (18:48)
[2023-05-01 21:33] LABS: Glucose Point of Care 189 mg/dL (70-110)
[2023-05-01] MEDS: insulin glargine 100 units/1 mL 10 UNIT SUBCUT (22:12)
[2023-05-02] VITALS (7 sets, daily range): BP systolic 136–155; BP diastolic 72–80; PULSE 77–85; RESP 15–18; TEMP 36.4–37.4; O2SAT 90–98; BMI 34.1
[2023-05-02] MEDS: HYDROcodone-acetaminophen 5-325 mg Tablet 1 TAB PO ×3 (01:14→19:30)
[2023-05-02] MEDS: piperacillin-tazobactam 3.375 GM in sodium chloride 0.9% (plus) 50 ML IV ×3 (01:15→17:08)
[2023-05-02 04:32] LABS: Basophils % 0.3 %; Eosinophils # 0.1 10^3/uL (0.0-0.8); Eosinophils % 0.6 %; Hematocrit 27.6 % (36-47); Lymphocytes # 1.5 10^3/uL (0.8-4.8); Lymphocytes % 10.6 %; Mean Corpuscular HGB Conc 33.3 g/dL (30-55); Mean Corpuscular Hemoglobin 27.9 pg (27-33); Mean Corpuscular Volume 83.6 fl (85-98); Mean Platelet Volume 10.7 fL (7.4-10.4); Monocytes # 0.7 10^3/uL (0.2-0.9); Monocytes % 4.9 %; Neutrophils % 82.3 %; Nucleated Red Blood Cells % 0 %; Platelet Count 249 10^3/cmm (157-399); Red Cell Distribution Width 15.5 % (12.1-15.1); White Blood Count 13.62 10^3/uL (3.29-11.43)
[2023-05-02] MEDS: heparin 5,000 unit/mL INJ 1 mL 5000 UNIT SUBCUT ×2 (04:35→17:08)
[2023-05-02 04:51] LABS: Anion Gap 15.7 (5-19); Blood Urea Nitrogen 14 mg/dL (8-23); Calcium 8.8 mg/dL (8.5-10.5); Carbon Dioxide 20 mmol/L (22-29); Chloride 103 mmol/L (98-107); Glomerular Filtration Rate 55.5 mL/min (90-130); Glucose 222 mg/dL (65-115); Magnesium 1.8 mg/dL (1.7-2.3); Osmolality Calculated 287 mOsm/kg (285-295); Potassium 3.7 mmol/L (3.5-5.1); Sodium 135 mmol/L (136-145)
[2023-05-02 07:07] LABS: Glucose Point of Care 213 mg/dL (70-110)
[2023-05-02] MEDS: sennosides-docusate Tablet 2 TAB PO ×2 (07:57→17:08)
[2023-05-02] MEDS: insulin lispro 100 unit/1 mL SUBCUT ×3 (07:57→17:08)
[2023-05-02] MEDS: sodium chloride 0.9% 1,000 ML 100 ML IV (07:58)
--- NOTE | 2023-05-02 11:31 | P.PN_ITS ---
Subjective 2 Subjective: No bowel movement yet Tolerating diet I have asked patient to ambulate in the hallway She is able to void and difficulty leukocytosis improving Hemoglobin stable Afebrile since yesterday low-grade fever noted on 05/01 Vitals/I&O/Wt Last Vital Signs Temp 98.2 F 05/02/23 07:57 Pulse 79 05/02/23 07:57 Resp 16 05/02/23 07:57 BP 136/72 05/02/23 07:57 Pulse Ox 93 05/02/23 07:57 O2 Del Method Nasal Cannula 05/02/23 07:57 O2 Flow Rate 3 05/02/23 03:10 05/01/23 05/02/23 05/02/23 22:59 06:59 14:59 Intake Total 1780 / 2310 50 / 2360 1335 / 1335 Output Total 725 / 875 325 / 1200 Balance 1055 / 1435 -275 / 1160 1335 / 1335 Weight last 48 hrs Weight 87.407 kg Weight 85.729 kg Weight 81.647 kg Weight 81.647 kg Physical Exam 2 Narrative: Patient is sitting in a recliner Saturating well on 2 L nasal cannula Afebrile Hemodynamically stable Abdomen soft Note nausea vomiting Tolerating diet Data 05/02/23 03:54 05/02/23 03:54 Micro: Microbiology 04/30/23 16:32 Urine Culture - Preliminary Urine,Clean Catch A&P Assessment and plan (1) Acute appendicitis with appendiceal abscess: (2) S/P laparoscopic appendectomy: (3) Sepsis: Plan Sepsis: Resolved Afebrile since yesterday Leukocytosis improving Continue antibiotics No bowel movement yet Patient tolerating diet I have encouraged patient to ambulate Likely will be able to discharge in next 24 to 48 hours Pathology report is pending Attestations 2 Medical Necessity Statement*: Likely discharge in next 48 hours Diagnoses Acute appendicitis with appendiceal abscess K35.33 S/P laparoscopic appendectomy Z90.49 Sepsis A41.9
[2023-05-02 11:32] LABS: Glucose Point of Care 196 mg/dL (70-110)
[2023-05-02] MEDS: ondansetron 2 mg/ML SDV 2 mL 4 MG IVP (14:35)
[2023-05-02] MEDS: HYDROmorphone 1 mg/mL INJ 1 mL 0.5 MG IVP (14:35)
[2023-05-02 16:48] LABS: Glucose Point of Care 216 mg/dL (70-110)
[2023-05-02] MEDS: pantoprazole 40 mg SDV IVP (17:08)
[2023-05-02] MEDS: vancomycin 1,250 MG/250 ML PIGGYBACK 250 MG IV (19:25)
[2023-05-02 21:30] LABS: Glucose Point of Care 182 mg/dL (70-110)
[2023-05-02] MEDS: insulin glargine 100 units/1 mL 30 UNIT SUBCUT (21:45)
[2023-05-03] VITALS (8 sets, daily range): BP systolic 145–162; BP diastolic 74–78; PULSE 73–87; RESP 14–18; TEMP 36.5–37.1; O2SAT 91–96; BMI 35.3
[2023-05-03] MEDS: piperacillin-tazobactam 3.375 GM in sodium chloride 0.9% (plus) 50 ML IV ×3 (01:43→17:40)
[2023-05-03] MEDS: heparin 5,000 unit/mL INJ 1 mL 5000 UNIT SUBCUT ×2 (04:56→17:40)
[2023-05-03 05:58] LABS: Basophils # 0.1 10^3/uL (0.0-0.1); Basophils % 0.7 %; Eosinophils # 0.2 10^3/uL (0.0-0.8); Eosinophils % 2.4 %; Hematocrit 28.1 % (36-47); Lymphocytes # 1.7 10^3/uL (0.8-4.8); Lymphocytes % 19.1 %; Mean Corpuscular HGB Conc 33.1 g/dL (30-55); Mean Corpuscular Hemoglobin 27.5 pg (27-33); Mean Corpuscular Volume 83.1 fl (85-98); Mean Platelet Volume 10.4 fL (7.4-10.4); Monocytes # 0.7 10^3/uL (0.2-0.9); Monocytes % 7.8 %; Neutrophils # 6.22 10^3/uL (1.8-7.7); Nucleated Red Blood Cells % 0 %; Platelet Count 275 10^3/cmm (157-399); Red Blood Count 3.38 10^6/uL (3.85-5.65); Red Cell Distribution Width 15.7 % (12.1-15.1); White Blood Count 9.13 10^3/uL (3.29-11.43)
[2023-05-03 06:22] LABS: Anion Gap 13.6 (5-19); Blood Urea Nitrogen 10 mg/dL (8-23); Carbon Dioxide 22 mmol/L (22-29); Chloride 105 mmol/L (98-107); Glomerular Filtration Rate 71.8 mL/min (90-130); Glucose 185 mg/dL (65-115); Magnesium 1.8 mg/dL (1.7-2.3); Osmolality Calculated 288 mOsm/kg (285-295); Potassium 3.6 mmol/L (3.5-5.1); Sodium 137 mmol/L (136-145)
[2023-05-03 06:52] LABS: Glucose Point of Care 183 mg/dL (70-110)
[2023-05-03] MEDS: sennosides-docusate Tablet 2 TAB PO ×2 (08:48→17:40)
[2023-05-03] MEDS: insulin lispro 100 unit/1 mL SUBCUT ×3 (08:48→17:39)
[2023-05-03] MEDS: potassium chloride ER 20 mEq Tablet 40 MEQ PO (11:13)
[2023-05-03 11:33] LABS: Glucose Point of Care 193 mg/dL (70-110)
[2023-05-03] MEDS: magnesium sulfate premix 2 GM/50 ML PIGGYBACK IV (13:07)
--- NOTE | 2023-05-03 13:30 | P.PN_ITS ---
Subjective 2 Subjective: Patient is stating that she is passing flatus but no bowel movement yet She does not feel that she is getting obstructed Will get KUB today She has received senna S Vitals/I&O/Wt Last Vital Signs Temp 98.0 F 05/03/23 11:32 Pulse 81 05/03/23 11:32 Resp 16 05/03/23 11:32 BP 155/77 05/03/23 11:32 Pulse Ox 93 05/03/23 11:32 O2 Del Method Nasal Cannula 05/03/23 11:32 O2 Flow Rate 2 05/03/23 09:17 05/02/23 05/03/23 05/03/23 22:59 06:59 14:59 Intake Total 1780 / 3405 50 / 3455 480 / 480 Output Total 340 / 340 500 / 840 Balance 1440 / 3065 -450 / 2615 480 / 480 Weight last 48 hrs Weight 90.401 kg Weight 87.407 kg Physical Exam 2 Narrative: Patient is eating breakfast Awake and alert Abdomen soft Sluggish bowel sound Currently on 1.5 L GCS 15 Nonfocal neuroexam Data 05/03/23 05:41 05/03/23 05:41 Micro: Microbiology 04/30/23 16:32 Urine Culture - Final Urine,Clean Catch 04/30/23 15:47 Blood Culture - Preliminary Blood 04/30/23 15:43 Blood Culture - Preliminary Blood A&P Assessment and plan (1) Acute appendicitis with appendiceal abscess: (2) S/P laparoscopic appendectomy: (3) Abdominal pain: Qualifiers: Abdominal location: right lower quadrant Qualified Code(s): R10.31 - Right lower quadrant pain (4) Sepsis: (5) Constipation: Plan Patient is constipated Will get KUB by tomorrow if no bowel movement No abdominal pain Tolerating diet Continue antibiotics No sign of sepsis No fever no leukocytosis I would not repeat labs for tomorrow Hyperglycemia improved Attestations 2 Medical Necessity Statement*: Likely discharge on Saturday Diagnoses Acute appendicitis with appendiceal abscess K35.33 S/P laparoscopic appendectomy Z90.49 Abdominal pain R10.31 Abdominal location: right lower quadrant Sepsis A41.9 Constipation K59.00
--- NOTE | 2023-05-03 13:35 | XR_ITS ---
WS: [id number] KUB, portable AP supine, 05/03/2023 Clinical Data: Constipation Comparison: None. Findings: No abnormal intraabdominal masses or calcifications are seen. There is no dilatated small bowel or ev idence of obstruction. There is a probable gastrostomy tube and a peritoneal dialysis tube overlying the abdomen. There is a moderate amount of fecal material throughout the colon. There is a hazy opacity throughout the abdom en suggesting abdominal ascites. Impression: Moderate amount of fecal material throughout the colon.
[2023-05-03] MEDS: magnesium citrate Btl 296 mL 150 ML PO (14:57)
[2023-05-03 16:50] LABS: Glucose Point of Care 152 mg/dL (70-110)
[2023-05-03] MEDS: pantoprazole 40 mg SDV IVP (17:40)
[2023-05-03 19:32] LABS: Vancomycin Trough < 4.0 ug/mL (10-15)
[2023-05-03] MEDS: insulin glargine 100 units/1 mL 30 UNIT SUBCUT (20:08)
[2023-05-03] MEDS: vancomycin 1,250 MG/250 ML PIGGYBACK 250 MG IV (20:08)
[2023-05-03 20:09] LABS: Glucose Point of Care 169 mg/dL (70-110)
[2023-05-04] MEDS: piperacillin-tazobactam 3.375 GM in sodium chloride 0.9% (plus) 50 ML IV ×3 (01:12→21:23)
--- NOTE | 2023-05-04 02:18 | PC.NURSE ---
Pt stated she had a bowel movement at about 1 am. Nurse did not see, pt stated was large bm that was solid and was followed by liquid stool.
[2023-05-04 04:00] VITALS: BP 155/84; PULSE 79; RESP 18; TEMP 36.2; O2SAT 93
[2023-05-04] MEDS: heparin 5,000 unit/mL INJ 1 mL 5000 UNIT SUBCUT ×2 (05:04→17:24)
[2023-05-04 06:39] LABS: Glucose Point of Care 165 mg/dL (70-110)
[2023-05-04 08:11] VITALS: BP 169/76; PULSE 73; RESP 22; TEMP 36.9; O2SAT 93
[2023-05-04] MEDS: insulin lispro 100 unit/1 mL SUBCUT ×3 (08:26→17:24)
[2023-05-04] MEDS: vancomycin 1,250 MG/250 ML PIGGYBACK 250 MG IV (08:26)
[2023-05-04] MEDS: sennosides-docusate Tablet 2 TAB PO ×2 (08:27→17:24)
[2023-05-04] MEDS: lactulose oral liq 20 gm/30 mL UDC 30 GM PO (10:04)
[2023-05-04 11:01] LABS: Glucose Point of Care 247 mg/dL (70-110)
--- NOTE | 2023-05-04 12:00 | P.PN_ITS ---
Subjective 2 Subjective: KUB showed excessive stool burden Will give p.o. lactulose today She had 1 bowel movement yesterday Not complain of any active [place] pain Vitals/I&O/Wt Last Vital Signs Temp 98.5 F 05/04/23 08:11 Pulse 73 05/04/23 08:11 Resp 22 H 05/04/23 08:11 BP 169/76 05/04/23 08:11 Pulse Ox 93 05/04/23 08:11 O2 Del Method Room Air 05/04/23 08:11 O2 Flow Rate 2 05/03/23 09:17 05/03/23 05/04/23 05/04/23 22:59 06:59 14:59 Intake Total 730 / 1310 100 / 1410 750 / 750 Balance 730 / 1310 100 / 1410 750 / 750 Weight last 48 hrs Weight 88.042 kg Weight 90.401 kg Physical Exam 2 Narrative: Awake and alert Abdomen soft Bowel sound present GCS 15 Euvolemic Pleasant and cooperative Data 05/03/23 05:41 05/03/23 05:41 Micro: Microbiology 04/30/23 16:32 Urine Culture - Final Urine,Clean Catch A&P Assessment and plan (1) Acute appendicitis with appendiceal abscess: (2) Abdominal pain: Qualifiers: Abdominal location: right lower quadrant Qualified Code(s): R10.31 - Right lower quadrant pain (3) S/P laparoscopic appendectomy: (4) Sepsis: (5) Constipation: Plan Constipation: Had 1 bowel movement yesterday No abdominal pain Given p.o. lactulose today Discontinue vancomycin Continue Zosyn Afebrile Ambulating Will test to see Dr. Fitzgerald tomorrow if I could discharge her home Continue DVT prophylaxis will switch to p.o. antibiotics at the time of discharge Attestations 2 Medical Necessity Statement*: Discharge likely tomorrow versus Saturday Diagnoses Acute appendicitis with appendiceal abscess K35.33 Abdominal pain R10.31 Abdominal location: right lower quadrant S/P laparoscopic appendectomy Z90.49 Sepsis A41.9 Constipation K59.00
[2023-05-04 12:11] VITALS: BP 147/79; PULSE 77; RESP 24; TEMP 37.2; O2SAT 94
--- NOTE | 2023-05-04 13:24 | P.PN_ITS ---
Subjective 2 Subjective: 68-year-old female status post laparosco pic appendectomy for perforated appendicitis with feculent peritonitis. Patient has been showing good progression after surgery, white count is normal, no significant changes in the vital signs. In the last 24 hours she had a bowel movement, according to the patient she feels better after this. Denies significant abdominal pain or other symptoms. Vitals/I&O/Wt Last Vital Signs Temp 98.9 F 05/04/23 12:11 Pulse 77 05/04/23 12:11 Resp 24 H 05/04/23 12:11 BP 147/79 05/04/23 12:11 Pulse Ox 94 05/04/23 12:11 O2 Del Method Room Air 05/04/23 12:11 O2 Flow Rate 2 05/03/23 09:17 05/03/23 05/04/23 05/04/23 22:59 06:59 14:59 Intake Total 730 / 1310 100 / 1410 750 / 750 Balance 730 / 1310 100 / 1410 750 / 750 Weight last 48 hrs Weight 194 lb 1.6 oz Weight 199 lb 4.8 oz Physical Exam 2 GI: OTHER: Abdomen is soft, there is minimal distention, surgical incisions are covered with Dermabond and not evidence of purulence or irritation. There is 2 STEFFANIE drains, output from both of the moment appears to be serosanguineous. Data 05/03/23 05:41 05/03/23 05:41 Micro: Microbiology 04/30/23 16:32 Urine Culture - Final Urine,Clean Catch A&P Assessment and plan (1) Acute appendicitis with appendiceal abscess: Plan Very good progression after laparoscopic appendectomy for perforated appendicitis with feculent peritonitis. Patient will remain in-house until Saturday for IV antibiotics in the last 24 hours she has progress fine now tolerating diet having bowel movements and passing gas, I have encouraged the patient to ambulate, I have given instructions regarding future wound care. The plan is to give her for 48 hours more and at the time we will discontinue the drains at discharge the patient home antibiotics. Attestations 2 Medical Necessity Statement*: 48 hours of hospital stay expected for I V antibiotics. Coding Level of Care Code Acute Code for [facility] Diagnoses Acute appendicitis with appendiceal abscess K35.33
[2023-05-04 16:33] VITALS: BP 155/74; PULSE 79; RESP 24; TEMP 37.1; O2SAT 95
[2023-05-04 17:11] LABS: Glucose Point of Care 163 mg/dL (70-110)
[2023-05-04] MEDS: pantoprazole 40 mg SDV IVP (17:24)
[2023-05-04 20:00] VITALS: BP 176/85; PULSE 81; RESP 17; TEMP 36.9; O2SAT 94
[2023-05-04 21:07] LABS: Glucose Point of Care 140 mg/dL (70-110)
[2023-05-04] MEDS: insulin glargine 100 units/1 mL 30 UNIT SUBCUT (21:23)
[2023-05-04] MEDS: HYDROmorphone 1 mg/mL INJ 1 mL 0.5 MG IVP (21:23)
[2023-05-05] VITALS (7 sets, daily range): BP systolic 156–177; BP diastolic 76–81; PULSE 72–81; RESP 16–18; TEMP 36.6–37; O2SAT 91–96; BMI 34.4
[2023-05-05] MEDS: piperacillin-tazobactam 3.375 GM in sodium chloride 0.9% (plus) 50 ML IV ×3 (03:34→21:22)
[2023-05-05] MEDS: heparin 5,000 unit/mL INJ 1 mL 5000 UNIT SUBCUT ×2 (05:21→17:44)
[2023-05-05 05:33] LABS: Basophils # 0.1 10^3/uL (0.0-0.1); Basophils % 0.7 %; Eosinophils # 0.3 10^3/uL (0.0-0.8); Eosinophils % 1.9 %; Hematocrit 30.3 % (36-47); Lymphocytes # 2.2 10^3/uL (0.8-4.8); Lymphocytes % 15.8 %; Mean Corpuscular Hemoglobin 27.3 pg (27-33); Mean Corpuscular Volume 82.8 fl (85-98); Mean Platelet Volume 10.1 fL (7.4-10.4); Monocytes # 1.1 10^3/uL (0.2-0.9); Monocytes % 7.7 %; Neutrophils # 9.85 10^3/uL (1.8-7.7); Neutrophils % 70.7 %; Nucleated Red Blood Cells % 0 %; Platelet Count 349 10^3/cmm (157-399); Red Blood Count 3.66 10^6/uL (3.85-5.65); Red Cell Distribution Width 15.9 % (12.1-15.1); White Blood Count 13.95 10^3/uL (3.29-11.43)
[2023-05-05 05:50] LABS: Anion Gap 15.7 (5-19); Blood Urea Nitrogen 11 mg/dL (8-23); Calcium 9.2 mg/dL (8.5-10.5); Carbon Dioxide 23 mmol/L (22-29); Chloride 103 mmol/L (98-107); Glomerular Filtration Rate 83.7 mL/min (90-130); Glucose 186 mg/dL (65-115); Osmolality Calculated 290 mOsm/kg (285-295); Potassium 3.7 mmol/L (3.5-5.1); Sodium 138 mmol/L (136-145)
[2023-05-05 07:59] LABS: Glucose Point of Care 188 mg/dL (70-110)
[2023-05-05] MEDS: insulin lispro 100 unit/1 mL SUBCUT ×3 (08:08→17:43)
[2023-05-05] MEDS: sennosides-docusate Tablet 2 TAB PO ×2 (08:14→17:44)
--- NOTE | 2023-05-05 10:31 | P.PN_ITS ---
Subjective 2 Subjective: 68-year-old female who is postoperative day 5 status post laparoscopic appendectomy for perforated acute appendicitis with abscess and feculent peritonitis. Patient has been stable over the last 24 hours, has passed gas and had a small bowel movements. According to the patient abdominal pain has improved and she feels better than yesterday. Denies nausea or vomit. Vitals/I&O/Wt Last Vital Signs Temp 97.8 F 05/05/23 07:33 Pulse 72 05/05/23 07:33 Resp 16 05/05/23 07:33 BP 158/76 05/05/23 07:33 Pulse Ox 94 05/05/23 07:33 O2 Del Method Room Air 05/05/23 07:33 O2 Flow Rate 2 05/03/23 09:17 05/04/23 05/05/23 05/05/23 22:59 06:59 14:59 Intake Total 250 / 1000 50 / 1050 480 / 480 Output Total 15 / 15 Balance 235 / 985 50 / 1035 480 / 480 Weight last 48 hrs Weight 194 lb 6.4 oz Weight 194 lb 1.6 oz Physical Exam 2 GI: OTHER: Abdomen is soft, there is mild distention, appropriately tender to palpation especially in the right lower quadrant. Surgical incisions are covered with Dermabond. There is 2 STEFFANIE drains the 1 in the suprapubic region that has serous output and the 1 in the left lower quadrant has serosanguineous output, no significant evidence of purulence during this evaluation. Data 05/05/23 04:53 05/05/23 04:53 A&P Assessment and plan (1) Acute appendicitis with appendiceal abscess: Plan 68-year-old female status post laparoscopic appendectomy for perforated acute appendicitis with abscess and feculent peritonitis. Patient has remained in- house for IV antibiotics, has had slow progression but continues to steadily improve. Clinically doing much better having bowel movements passing gas and not complaining of significant abdominal pain, STEFFANIE drains appear to have serosanguineous and serous output. Vital signs have remained stable. There has been an uptrend on the white count this morning, it went from 9.1 to 13.9. We will repeat labs in the morning, in the case of further uptrending of the white count will probably be to obtain a CT scan of the abdomen pelvis with p.o. and IV contrast to evaluate for any residual intra-abdominal collections that may need drainage. Attestations 2 Medical Necessity Statement*: patient will require 24 to 48 hours of hospital stay for IV antibiotics and monitoring of white count. Coding Level of Care Code Acute Code for [facility] Diagnoses Acute appendicitis with appendiceal abscess K35.33
[2023-05-05 11:48] LABS: Glucose Point of Care 179 mg/dL (70-110)
--- NOTE | 2023-05-05 12:38 | P.PN_ITS ---
Subjective 2 Subjective: Leukocytosis around 13,000 Patient stating that she is having regular bowel movement, she thinks constipation is getting better Afebrile Cultures negative Hyperglycemia improved colon biopsy showing acute appendicitis with fat necrosis Vitals/I&O/Wt Last Vital Signs Temp 97.8 F 05/05/23 07:33 Pulse 81 05/05/23 11:42 Resp 16 05/05/23 07:33 BP 158/76 05/05/23 07:33 Pulse Ox 94 05/05/23 11:42 O2 Del Method Room Air 05/05/23 11:42 O2 Flow Rate 2 05/03/23 09:17 05/04/23 05/05/23 05/05/23 22:59 06:59 14:59 Intake Total 250 / 1000 50 / 1050 530 / 530 Output Total 15 / 15 Balance 235 / 985 50 / 1035 530 / 530 Weight last 48 hrs Weight 88.178 kg Weight 88.042 kg Physical Exam 2 Narrative: Off oxygen Doing well GCS 15 Pleasant cooperative S1, S2 abdomen soft Data 05/05/23 04:53 05/05/23 04:53 A&P Assessment and plan (1) Acute appendicitis with appendiceal abscess: (2) Abdominal pain: Qualifiers: Abdominal location: right lower quadrant Qualified Code(s): R10.31 - Right lower quadrant pain (3) Constipation: (4) S/P laparoscopic appendectomy: (5) Sepsis: Plan Leukocytosis noted today Currently patient is on Zosyn Afebrile Blood pressure hyperglycemia improved Having bowel movement Plan to discharge on Saturday if leukocytosis improving Attestations 2 Medical Necessity Statement*: Discharge likely tomorrow Diagnoses Acute appendicitis with appendiceal abscess K35.33 Abdominal pain R10.31 Abdominal location: right lower quadrant Constipation K59.00 S/P laparoscopic appendectomy Z90.49 Sepsis A41.9
[2023-05-05 16:29] LABS: Glucose Point of Care 218 mg/dL (70-110)
[2023-05-05] MEDS: pantoprazole 40 mg SDV IVP (17:43)
[2023-05-05 21:09] LABS: Glucose Point of Care 149 mg/dL (70-110)
[2023-05-05] MEDS: insulin glargine 100 units/1 mL 30 UNIT SUBCUT (21:22)
[2023-05-06] VITALS: BP 170/82; PULSE 74; RESP 17; TEMP 36.9; O2SAT 94
[2023-05-06 03:04] LABS: Basophils # 0.1 10^3/uL (0.0-0.1); Basophils % 0.7 %; Eosinophils # 0.3 10^3/uL (0.0-0.8); Eosinophils % 2.3 %; Hematocrit 28.7 % (36-47); Lymphocytes # 2.8 10^3/uL (0.8-4.8); Lymphocytes % 19.8 %; Mean Corpuscular HGB Conc 33.4 g/dL (30-55); Mean Corpuscular Hemoglobin 27.7 pg (27-33); Mean Corpuscular Volume 82.9 fl (85-98); Mean Platelet Volume 10.4 fL (7.4-10.4); Monocytes % 7.4 %; Neutrophils % 65.8 %; Nucleated Red Blood Cells % 0 %; Platelet Count 362 10^3/cmm (157-399); Red Blood Count 3.46 10^6/uL (3.85-5.65); Red Cell Distribution Width 15.9 % (12.1-15.1); White Blood Count 14.13 10^3/uL (3.29-11.43)
[2023-05-06 03:46] VITALS: BP 171/77; PULSE 74; RESP 17; TEMP 36.9; O2SAT 93; BMI 33.6
[2023-05-06] MEDS: piperacillin-tazobactam 3.375 GM in sodium chloride 0.9% (plus) 50 ML IV ×2 (04:20→11:00)
[2023-05-06] MEDS: heparin 5,000 unit/mL INJ 1 mL 5000 UNIT SUBCUT (04:20)
[2023-05-06 06:38] LABS: Glucose Point of Care 155 mg/dL (70-110)
--- NOTE | 2023-05-06 07:49 | CTR_ITS ---
PROCEDURE INFORMATION: Exam: CT Abdomen And Pelvis With Contrast Exam date and time: 05/06/2023 9:56 AM Age: 68 years old Clinical indication: Other: S/P perf appendicitis, wbc trending up; Prior surgery; Surgery date: 3-7 days post-operative; Surgery type: Appy TECHNIQUE: Imaging protocol: Computed tomography of the abdomen and pelvis with contrast. Radiation optimization: All CT scans at this facility use at least one of these dose optimization techniques: automated exposure control; mA and/or kV adjustment per patient size (includes targeted exams where dose is matched to clinical indication); or iterative reconstruction. Contrast material: OMNI 350; Contrast volume: 100 ml; Contrast route: INTRAVENOUS (IV); Other contrast: Oral; COMPARISON: CT abdomen pelvis w con* [id number] 04/30/2023 1:22 PM RADIATION DOSE METRICS: Total DLP (mGy-cm): 811.27 FINDINGS: Tubes, catheters and devices: A surgical drain terminates in the right upper quadrant and left hemipelvis. Lungs: New right basilar consolidation. Liver: No mass. Gallbladder and bile ducts: No calcified stones. No ductal dilation. Pancreas: No ductal dilation. Spleen: Unremarkable. Adrenal glands: Unremarkable. Kidneys and ureters: Scattered low density foci in the kidneys, too small to accurately characterize but statistically favored benign. No hydronephrosis. Stomach and bowel: Multiple areas of wall thickening in the right lower quadrant small bowel (series 5, image 18, 16, and 27) with mild proximal bowel dilation measuring 3.2 cm. Colonic diverticulosis without diverticulitis. Appendix: No evidence of appendicitis. Intraperitoneal space: Fluid and gas in the right hemiabdomen measuring approximately 5.9 x 5.7 x 3.1 cm. A small more organized rim enhancing collection is seen along the left lateral margin of the dominant phlegmon measuring 1.6 x 2.6 x 1.6 cm (series 3, image 50, series 5, image 25). Vasculature: Moderate atherosclerotic calcifications. Lymph nodes: Unremarkable. No enlarged lymph nodes. Urinary bladder: Unremarkable as visualized. Reproductive: Unremarkable as visualized. Bones/joints: Mild degenerative changes of the spine. Soft tissues: Unremarkable. CT/CT abdomen pelvis w con* [id number] IMPRESSION: 1. Perforated appendicitis with increased adjacent intraperitoneal gas and fluid, the majority of which is not organized/amenable to percutaneous drainage. 2. Multifocal areas of small bowel wall thickening and dilation, likely reactive inflammation/ileus. 3. New small right basilar consolidation, concerning for infection/aspiration.
[2023-05-06] MEDS: sennosides-docusate Tablet 2 TAB PO (07:53)
[2023-05-06] MEDS: insulin lispro 100 unit/1 mL SUBCUT ×2 (07:54→11:39)
[2023-05-06 08:00] VITALS: BP 172/77; PULSE 71; RESP 16; TEMP 36.8; O2SAT 95
[2023-05-06] MEDS: iohexol 350 mg/mL 500 mL Btl (per mL) IV (10:05)
[2023-05-06] MEDS: iohexol 350 mg/mL 500 mL Btl (per mL) PO (10:06)
[2023-05-06 11:01] VITALS: BP 166/74; PULSE 70; RESP 16; TEMP 36.7; O2SAT 97
[2023-05-06 11:53] LABS: Glucose Point of Care 179 mg/dL (70-110)
--- NOTE | 2023-05-06 12:50 | PC.SOCIAL ---
IMM Updated Updated pt on IMM. No questions voiced. Provided pt a copy. Initialed, dated, & timed copy in chart.
--- NOTE | 2023-05-06 13:21 | P.DS_ITS ---
Discharge Providers Date of Admission: 04/30/23 17:05 Date of Discharge: May 06, 2023 Attending Provider at Admission: Haris Fitzgerald DO Attending Provider at Discharge: Haris Fitzgerald DO Diagnoses at Discharge Discharge Diagnosis (1) Acute appendicitis with appendiceal abscess: Status: Acute (2) Abdominal pain: Status: Acute Qualifiers: Abdominal location: right lower quadrant Qualified Code(s): R10.31 - Right lower quadrant pain (3) Constipation: Status: Acute (4) S/P laparoscopic appendectomy: Status: Acute (5) Sepsis: Status: Acute Reason for Visit Reason for Visit: dr chandra, right side abd pain Hospital Course Hospital Course 68-year-old female who was admitted from an outside facility for appendicitis with perforation, patient waited 5 days before seeking medical help, she was taken to the OR by Dr. Fitzgerald status post laparoscopic appendectomy with 2 Douglas drains which were removed postoperatively, patient started having bowel movement with bowel regimen, it took roughly 48 hours for a bowel movement and passage of gas, she did not experience any worsening abdominal pain, she remained afebrile, she was diagnosed sepsis on admission, required broad- spectrum antibiotics including vancomycin and Zosyn, cultures remain negative, biopsy consistent with fat necrosis and appendicitis, patient developed atelectasis because she was not using incentive spirometer as recommended, she is also developed pneumonia but not requiring oxygen she is on room air clinically doing much better, having regular bowel movement, we will discharge her home on Augmentin and Levaquin 10-day course with close follow-up with Dr. Fitzgerald. Physical Exam Narrative: Awake and alert GCS 8 Currently on room air Pleasant Eating breakfast Abdomen soft Bowel sound present Discharge Data Studies Completed and Pending Completed Studies During Hospitalization Category Date Time Status CT abdomen pelvis w con* [id number] Routine Cat Scan 05/06/23 07:49 Completed XR KUB portable [id number] Routine Exams 05/03/23 13:35 Completed Pathology: Surgical [PTH] Routine Pth 04/30/23 19:19 Completed Pending at discharge Category Date Time Status Blood Cultures ([facility]) Routine Lab 04/30/23 15:43 Results Blood Cultures ([facility]) Routine Lab 04/30/23 15:47 Results Radiology Impressions Abdomen/Pelvis CT 05/06/23 07:49 IMPRESSION: 1. Perforated appendicitis with increased adjacent intraperitoneal gas and fluid, the majority of which is not organized/amenable to percutaneous drainage. 2. Multifocal areas of small bowel wall thickening and dilation, likely reactive inflammation/ileus. 3. New small right basilar consolidation, concerning for infection/aspiration. Laboratory Results WBC 14.13 10^3/uL (3.29-11.43) H 05/06/23 02:12 RBC 3.46 10^6/uL (3.85-5.65) L 05/06/23 02:12 Hgb 9.60 g/dL (11.27-16.99) L 05/06/23 02:12 Hct 28.7 % (36-47) L 05/06/23 02:12 MCV 82.9 fl (85-98) L 05/06/23 02:12 MCH 27.7 pg (27-33) 05/06/23 02:12 MCHC 33.4 g/dL (30-55) 05/06/23 02:12 RDW 15.9 % (12.1-15.1) H 05/06/23 02:12 Plt Count 362 10^3/cmm (157-399) 05/06/23 02:12 MPV 10.4 fL (7.4-10.4) 05/06/23 02:12 Neut % (Auto) 65.8 % 05/06/23 02:12 Lymph % (Auto) 19.8 % 05/06/23 02:12 [place] % (Auto) 7.4 % 05/06/23 02:12 Eos % (Auto) 2.3 % 05/06/23 02:12 Baso % (Auto) 0.7 % 05/06/23 02:12 Neut # (Auto) 9.30 10^3/uL (1.8-7.7) H 05/06/23 02:12 Lymph # (Auto) 2.8 10^3/uL (0.8-4.8) 05/06/23 02:12 [place] # (Auto) 1.0 10^3/uL (0.2-0.9) H 05/06/23 02:12 Eos # (Auto) 0.3 10^3/uL (0.0-0.8) 05/06/23 02:12 Baso # (Auto) 0.1 10^3/uL (0.0-0.1) 05/06/23 02:12 Nucleated RBC % (auto) 0 % 05/06/23 02:12 Nucleated RBCs # 0.0 /100WBC 05/06/23 02:12 PT 14.80 SECONDS (12.1-14.9) 04/30/23 15:31 INR 1.12 (0.8-1.2) 04/30/23 15:31 APTT 31.9 SECONDS (23.9-36.7) 04/30/23 15:31 Sodium 138 mmol/L (136-145) 05/05/23 04:53 Potassium 3.7 mmol/L (3.5-5.1) 05/05/23 04:53 Chloride 103 mmol/L (98-107) 05/05/23 04:53 Carbon Dioxide 23 mmol/L (22-29) 05/05/23 04:53 Anion Gap 15.7 (5-19) 05/05/23 04:53 BUN 11 mg/dL (8-23) 05/05/23 04:53 Creatinine 0.7 mg/dL (0.5-0.9) 05/05/23 04:53 GFR Calculation 83.7 mL/min (90-130) L 05/05/23 04:53 Glucose 186 mg/dL (65-115) H 05/05/23 04:53 POC Glucose 179 mg/dL (70-110) H 05/06/23 10:57 Estimat Average Glucose 123 05/01/23 04:20 Hemoglobin A1c 5.9 % (4.0-6.0) 05/01/23 04:20 Calculated Osmolality 290 mOsm/kg (285-295) 05/05/23 04:53 Lactic Acid 1.3 mmol/L (0.5-2.2) 04/30/23 15:31 Lactate 1.2 mmol/L (0.5-2.2) 05/01/23 04:20 Calcium 9.2 mg/dL (8.5-10.5) 05/05/23 04:53 Magnesium 1.8 mg/dL (1.7-2.3) 05/03/23 05:41 Total Bilirubin 0.6 mg/dL (0.15-1.2) 04/30/23 15:31 AST 24 U/L (0-32) 04/30/23 15:31 ALT 26 U/L (0-33) 04/30/23 15:31 Alkaline Phosphatase 57 U/L (35-105) 04/30/23 15:31 C-Reactive Protein 311.9 mg/L (0.0-4.9) H 05/01/23 04:20 Total Protein 7.5 g/dL (6.6-8.7) 04/30/23 15:31 Albumin 4.1 g/dL (3.5-5.2) 04/30/23 15:31 Globulin 3.4 g/dL (1.3-4.6) 04/30/23 15:31 Procalcitonin 2.73 ng/mL (0-0.5) H 04/30/23 15:31 Urine Color Yellow (Yellow) 04/30/23 16:32 Urine Appearance Clear (CLEAR) 04/30/23 16:32 Urine pH 7 (5-7) 04/30/23 16:32 Ur Specific [place] 1.010 (1.005-1.030) 04/30/23 16:32 Urine Protein 1+ (Negative) H 04/30/23 16:32 Urine Glucose (UA) Norm (Normal) 04/30/23 16:32 Urine Ketones 1+ (Negative) H 04/30/23 16:32 Urine Blood 3+ (Negative) H 04/30/23 16:32 Urine Nitrate Negative (Negative) 04/30/23 16:32 Urine Bilirubin Neg (Negative) 04/30/23 16:32 Urine Urobilinogen Norm mg/dL (Negative) 04/30/23 16:32 Ur Leukocyte Esterase 1+ (Negative) H 04/30/23 16:32 Urine RBC 5-10 /hpf (0-2) H 04/30/23 16:32 Urine WBC 5-10 /hpf (0-5) H 04/30/23 16:32 Ur Squamous Epith Cells 0-4 /hpf (0-5) H 04/30/23 16:32 Amorphous Sediment Not Reportable 04/30/23 16:32 Urine Bacteria None /hpf (NONE) 04/30/23 16:32 Urine Mucus None /hpf 04/30/23 16:32 Vancomycin Trough < 4.0 ug/mL (10-15) L 05/03/23 18:13 Vitals Last Vital Signs Temp 98.1 F 05/06/23 11:01 Pulse 70 05/06/23 11:01 Resp 16 05/06/23 11:01 BP 166/74 05/06/23 11:01 Pulse Ox 97 05/06/23 11:01 O2 Del Method Room Air 05/06/23 11:01 O2 Flow Rate 2 05/03/23 09:17 Discharge Plan Discharge Patient Disposition: Home Condition: Stable Prescriptions: New hydrocodone-acetaminophen 7.5-325 mg tablet 1 tab PO Q6H PRN (Reason: pain) Qty: 20 0RF tramadol 50 mg tablet 50 mg PO Q8H PRN (Reason: pain) Qty: 10 0RF amoxicillin-pot clavulanate 875-125 mg tablet 1 tab PO BID Qty: 20 0RF levofloxacin 750 mg tablet 750 mg PO DAILY 10 Days Qty: 10 0RF lactulose [Constulose] 10 gram/15 mL solution 10 g PO DAILY PRN (Reason: constipation) Qty: 237 0RF Continued carvedilol 6.25 mg tablet 6.25 mg PO BID tizanidine 2 mg tablet 2 mg PO Q6H PRN (Reason: Muscle Spasm) Zyrtec 10 mg Tablet 10 mg PO DAILY glipizide 10 mg tablet 10 mg PO BID lovastatin 40 mg tablet 40 mg PO BEDTIME citalopram 20 mg tablet 20 mg PO QAM Vitamin C 500 mg Tablet 500 mg PO QAM amlodipine 10 mg tablet 10 mg PO QAM metformin 1,000 mg tablet 1,000 mg PO BID Rx Instructions: med on hold till 05/02/23 due to contrast dye vitamin B complex Tablet 1 tab PO QAM hydroxyzine HCl 25 mg tablet 25 mg PO BEDTIME Rx Instructions: may take extra tab during the day as needed for anxiety furosemide 20 mg tablet 20 mg PO QAM ibuprofen 600 mg tablet 600 mg PO TID PRN (Reason: Pain) fenofibrate nanocrystallized 48 mg tablet 96 mg PO BEDTIME Calcium 600 + D(3) 600 mg-10 mcg (400 unit) Tablet 1 tab PO QAM Lantus Solostar U-100 Insulin 100 unit/mL (3 mL) insulin pen See Rx Instructions .ROUTE .COMPLEX Rx Instructions: inject 36 units subcutaneously in the am and 30 units at bedtime Ozempic 1 mg/dose (4 mg/3 mL) pen injector 1 mg SUBCUT Q7D Rx Instructions: on saturday (med on hold for 2 weeks as of 04/29/23) Held aspirin 325 mg Tablet 325 mg PO BEDTIME Hold Instructions: Resume on 05/20/23. iron 325 mg (65 mg iron) Tablet 325 mg PO QAM Hold Instructions: Resume on 06/03/23. Discontinued meloxicam 7.5 mg tablet 7.5 mg PO QAM apple cider vinegar 500 mg Tablet 500 mg PO BEDTIME Discharge Orders: Discharge Order (Routine); Ordered 05/06/23 Ordered By: Xavier Noyola Referrals: Haris Fitzgerald DO [Physician] - 2 weeks Nathan Jaime [Referring] - 4-7 days Patient Instructions: Opioid Safety, Post Anesthesia Care Activity Restrictions/Additional Instructions: Leave bandage on over drain sites for 2 days and then remove. Do not soak incisions underwater for 2 weeks. Shower daily. Use incentive spirometer 10 times per hour while awake Discharge Attestations Time Spent in Discharge Care*: greater than 30 min Quality Metrics Clinical Quality Measures [ No reported AMI, CVA or VTE this stay] Coding Level of Care Code Acute Code for Chg Fwd Diagnoses Acute appendicitis with appendiceal abscess K35.33 Abdominal pain R10.31 Abdominal location: right lower quadrant Constipation K59.00 S/P laparoscopic appendectomy Z90.49 Sepsis A41.9
--- NOTE | 2023-05-06 13:31 | PC.NURSE ---
This nurse removed sutures and STEFFANIE drains x2. Incisions covered with sterile 2x2 and tape. Pt tolerated well.
== END 2023-05-06 14:50 | disposition home or self-care (01) | DRG 853 ==
LOC: ER 16:49 → MEDSURG 17:06
PROVIDERS: Internal Medicine; Surgery; Admitting Provider Surgery; Emergency Provider Internal Medicine; Visit Provider Surgery
PROC: 0DTJ4ZZ Resection of Appendix, Percutaneous Endoscopic Approach (ICD-10-PCS; CPT 44970; principal; 2023-04-30 17:00)
DX: A41.9 Sepsis, unspecified organism (principal); J18.9 Pneumonia, unspecified organism; K35.33 Acute appendicitis with perforation, localized peritonitis, and gangrene, with abscess; J98.11 Atelectasis; E11.65 Type 2 diabetes mellitus with hyperglycemia; I10 Essential (primary) hypertension; K21.9 Gastro-esophageal reflux disease without esophagitis; K59.00 Constipation, unspecified; Z79.84 Long term (current) use of oral hypoglycemic drugs; Z79.82 Long term (current) use of aspirin; Z79.4 Long term (current) use of insulin; Z79.85 Long-term (current) use of injectable non-insulin antidiabetic drugs
CPT/HCPCS: 36415; 36416; 74018; 74177; 80048; 80053; 80202; 81001; 82962; 83036; 83605; 83735; 84145; 85025; 85610; 85730; 86140; 87040; 87086; 88304; 96372; 99285; C9113; J1100; J1170; J1644; J1815; J2405; J2543; J2704; J3010; J3370; J3475; J3490; J7030; Q9967

== ENCOUNTER → 2023-05-13 10:32 | Outpatient (BNVA) | payer MEDICARE, SELFPAY | PROVIDERS: Visit Provider Surgery | DX: Z90.49 Acquired absence of other specified parts of digestive tract (principal); Z48.815 Encounter for surgical aftercare following surgery on the digestive system; Z79.899 Other long term (current) drug therapy | CPT/HCPCS: 99024 ==

== ENCOUNTER 2024-02-11 12:55 | Outpatient (CLI) | payer MEDICARE, SELFPAY ==
--- NOTE | 2024-02-11 12:59 | MM_ITS ---
WS: [id number] BILATERAL 3D TOMOSYNTHESIS DIGITAL SCREENING MAMMOGRAPHY WITH CAD CLINICAL INFORMATION: SCREENING HISTORY: Screening mammogram. No current complaints. COMPARISON: 2022 TECHNIQUE: Bilateral CC and MLO views. FINDINGS: The breasts are composed of heterogeneous fibroglandular density tissue, which can limit the detectio n of small underlying mass lesions. No suspicious mass, asymmetry, calcifications, or architectural d istortion. No evidence of malignancy. Punctate and lucent centered calcifications. MM/MM [facility] tomosynthesis [id number] IMPRESSION: DENSITY: The breasts are heterogeneously dense, which may obscure small masses. BI-RADS: 2 - Benign FOLLOW UP: 1 Year Follow-up Recommend return to annual screening mammography.
== END 2024-02-11 12:56 | disposition home or self-care (01) ==
LOC: RAD 12:56
PROVIDERS: Visit Provider Family Medicine
DX: Z12.31 Encounter for screening mammogram for malignant neoplasm of breast (principal); R92.333 Mammographic heterogeneous density, bilateral breasts; R92.1 Mammographic calcification found on diagnostic imaging of breast
CPT/HCPCS: 77063; 77067

== ENCOUNTER 2025-03-15 10:54 | Outpatient (CLI) | payer MEDICARE, SELFPAY ==
--- NOTE | 2025-03-15 11:01 | MM_ITS ---
WS: [id number] BILATERAL 3D TOMOSYNTHESIS DIGITAL SCREENING MAMMOGRAPHY WITH CAD CLINICAL INFORMATION: SCREENING HISTORY: Screening mammogram. No current complaints. COMPARISON: 2023 TECHNIQUE: Bilateral CC and MLO views. FINDINGS: The breasts are composed of heterogeneous fibroglandular density tissue, which can limit the detection of small underlying mass lesions. No suspicious mass, asymmetry, calcifications, or architectural distortion. No evidence of malignancy. Coarse and lucent centered calcifications. MM/MM [facility] tomosynthesis [id number] IMPRESSION: DENSITY: The breasts are heterogeneously dense, which may obscure small masses. BI-RADS: 2 - Benign FOLLOW UP: 1 Year Follow-up Recommend return to annual screening mammography.
== END 2025-03-15 10:55 | disposition home or self-care (01) ==
LOC: RAD 10:59
PROVIDERS: PCP Family Medicine; Visit Provider Family Medicine
DX: Z12.31 Encounter for screening mammogram for malignant neoplasm of breast (principal); R92.323 Mammographic fibroglandular density, bilateral breasts; R92.1 Mammographic calcification found on diagnostic imaging of breast
CPT/HCPCS: 77063; 77067